=== PATIENT | male | born 1965 | race Caucasian/White ===

== ENCOUNTER 2018-04-07 08:00 | Outpatient (RCR) | payer OTHER, SELFPAY | END 2018-05-10 08:19 | disposition home or self-care (01) | LOC: PT 08:00 | PROVIDERS: Visit Provider Family Medicine | DX: S46.011A Strain of muscle(s) and tendon(s) of the rotator cuff of right shoulder, initial encounter (principal) | CPT/HCPCS: 97010; 97014; 97033; 97035; 97110; 97140; 97163; G0283 ==

== ENCOUNTER 2018-06-21 10:00 | Outpatient (RCR) | payer OTHER, SELFPAY | END 2018-06-27 10:47 | disposition home or self-care (01) | LOC: PT.CARL 10:00 | PROVIDERS: Visit Provider Orthopaedic Surgery Adult Reconstructive Orthopaedic Surgery | DX: M25.511 Pain in right shoulder (principal) | CPT/HCPCS: 97110; 97163 ==

== ENCOUNTER 2018-09-27 11:00 | Outpatient (RCR) | payer OTHER, SELFPAY | END 2018-09-27 15:34 | disposition home or self-care (01) | LOC: PT.CARL 11:00 | PROVIDERS: Visit Provider Orthopaedic Surgery Adult Reconstructive Orthopaedic Surgery | DX: M75.101 Unspecified rotator cuff tear or rupture of right shoulder, not specified as traumatic (principal) | CPT/HCPCS: 97010; 97014; 97110; 97140; 97163; 97164; G0283 ==

== ENCOUNTER → 2022-08-25 10:42 | Outpatient (CLI) | payer BC, SELFPAY ==
[2022-08-25 17:19] LABS: Alanine Aminotransferase 33 U/L (12-78); Albumin Level 4.2 g/dl (3.5-5.0); Albumin/Globulin Ratio 1.8 (1.1-1.8); Alkaline Phosphatase 105 U/L (38-126); Anion Gap 11.9 mEq/L (5-15); Aspartate Amino Transferase 32 U/L (17-59); Bilirubin,Total 1.7 mg/dl (0.2-1.3); Blood Urea Nitrogen 15 mg/dl (9-20); Calcium 8.6 mg/dl (8.4-10.2); Carbon Dioxide 27 mmol/L (22.0-30.0); Chloride 100 mmol/L (98-107); Chol/HDL Ratio 5.7 (1-3.5); Cholesterol 176 mg/dl (140-200); Estimated Glomerular Filt Rate 117 ml/min (>60); GFR (African American) 141 ML/MIN (>60); Globulin 2.3 g/dL (1.3-3.2); Glucose 267 mg/dl (74-100); HDL Cholesterol 31 mg/dl (40-60); Potassium 3.9 mmoL/L (3.5-5.1); Sodium 135 mmol/L (136-145); Total Protein,Serum 6.5 g/dl (6.3-8.2)
[2022-08-25 17:27] LABS: Basophils # 0.1 K/mm3 (0-0.2); Eosinophils # 0.3 K/mm3 (0.0-0.4); Eosinophils % 4.8 % (0.1-12.0); Hematocrit 47.9 % (42.0-52.0); Hemoglobin 15.9 g/dL (14.1-18.0); Lymphocytes % 18.4 % (10-50); Mean Corpuscular HGB Conc 33.2 g/dL (31.8-35.4); Mean Corpuscular Hemoglobin 27.9 pg (27.0-31.2); Mean Corpuscular Volume 83.9 fl (80-94); Mean Platelet Volume 9.2 fl (7.4-10.4); Monocytes # 0.3 K/mm3 (0.1-1.0); Neutrophils # 3.8 K/mm3 (1.8-7.8); Neutrophils % 69.9 % (37.0-80.0); Platelet Count 193 K/mm3 (142-424); Red Blood Count 5.71 M/mm3 (4.60-6.20); Red Cell Distribution Width 13.6 % (11.5-17.5); White Blood Count 5.4 K/mm3 (4.8-10.8)
[2022-08-25 17:30] LABS: Direct LDL Cholesterol 36.95 mg/dL (100-129)
[2022-08-25 17:49] LABS: Thyroid Stimulating Hormone 1.31 uIU/mL (0.465-4.68)
[2022-08-25 18:17] LABS: Triglycerides 508 mg/dl (30-150)
[2022-08-25 20:27] LABS: Microalbumin/Creatinine Ratio 50.1
[2022-08-25 20:29] LABS: Creatinine,Urine Random 120 mg/dL (Not Estab.)
== END ==
PROVIDERS: PCP Family Medicine; Visit Provider Family Medicine
DX: Z00.00 Encounter for general adult medical examination without abnormal findings (principal); I10 Essential (primary) hypertension; E11.9 Type 2 diabetes mellitus without complications; Z79.84 Long term (current) use of oral hypoglycemic drugs
CPT/HCPCS: 80053; 80061; 82043; 82570; 83036; 84443; 85025

== ENCOUNTER → 2022-12-15 17:28 | Outpatient (CLI) | payer BC, SELFPAY ==
[2022-12-15 20:04] LABS: Basophils # 0.1 K/mm3 (0-0.2); Basophils % 0.7 % (0.1-2.0); Eosinophils # 0.3 K/mm3 (0.0-0.4); Eosinophils % 3.9 % (0.1-12.0); Hematocrit 46.7 % (42.0-52.0); Hemoglobin 15.7 g/dL (14.1-18.0); Lymphocytes # 1.2 K/mm3 (0.7-4.5); Lymphocytes % 17.5 % (10-50); Mean Corpuscular HGB Conc 33.5 g/dL (31.8-35.4); Mean Corpuscular Hemoglobin 28.5 pg (27.0-31.2); Mean Platelet Volume 7.7 fl (7.4-10.4); Monocytes # 0.4 K/mm3 (0.1-1.0); Monocytes % 6.1 % (1.7-9.3); Neutrophils % 71.8 % (37.0-80.0); Platelet Count 165 K/mm3 (142-424); Red Cell Distribution Width 13.2 % (11.5-17.5)
[2022-12-15 20:33] LABS: Alanine Aminotransferase 35 U/L (12-78); Albumin Level 4.9 g/dl (3.5-5.0); Albumin/Globulin Ratio 2.3 (1.1-1.8); Alkaline Phosphatase 81 U/L (38-126); Aspartate Amino Transferase 30 U/L (17-59); Bilirubin,Total 1.5 mg/dl (0.2-1.3); Blood Urea Nitrogen 18 mg/dl (9-20); Calcium 9.1 mg/dl (8.4-10.2); Carbon Dioxide 28 mmol/L (22.0-30.0); Chloride 104 mmol/L (98-107); Chol/HDL Ratio 5.3 (1-3.5); Cholesterol 207 mg/dl (140-200); Estimated Glomerular Filt Rate 117 ml/min (>60); GFR (African American) 141 ML/MIN (>60); Globulin 2.1 g/dL (1.3-3.2); Glucose 92 mg/dl (74-100); HDL Cholesterol 39 mg/dl (40-60); Sodium 139 mmol/L (136-145); Triglycerides 342 mg/dl (30-150); VLDL Cholesterol 68 mg/dL (0-40)
[2022-12-15 20:42] LABS: Hemoglobin A1C 6.9 % (4.0-6.0)
[2022-12-15 20:44] LABS: Direct LDL Cholesterol 68.73 mg/dL (100-129)
== END ==
PROVIDERS: PCP Family Medicine; Visit Provider Family Medicine
DX: E11.9 Type 2 diabetes mellitus without complications (principal); E78.2 Mixed hyperlipidemia; I10 Essential (primary) hypertension
CPT/HCPCS: 80053; 80061; 83036; 85025

== ENCOUNTER → 2023-04-07 23:12 | Outpatient (CLI) | payer BC, SELFPAY ==
[2023-04-07 21:29] LABS: Hemoglobin A1C 6.7 % (4.0-6.0)
== END ==
PROVIDERS: PCP Family Medicine; Visit Provider Nurse Practitioner Family
DX: E11.9 Type 2 diabetes mellitus without complications (principal)
CPT/HCPCS: 83036

== ENCOUNTER 2023-09-12 11:24 | Outpatient (CLI) | payer BC, SELFPAY ==
[2023-09-12 16:40] LABS: Basophils # 0.1 K/mm3 (0-0.2); Basophils % 0.9 % (0.1-2.0); Eosinophils # 0.2 K/mm3 (0.0-0.4); Eosinophils % 3.3 % (0.1-12.0); Hematocrit 52.1 % (42.0-52.0); Hemoglobin 17.1 g/dL (14.1-18.0); Lymphocytes # 1.2 K/mm3 (0.7-4.5); Lymphocytes % 21.9 % (10-50); Mean Corpuscular HGB Conc 32.9 g/dL (31.8-35.4); Mean Corpuscular Hemoglobin 29.2 pg (27.0-31.2); Mean Corpuscular Volume 88.6 fl (80-94); Mean Platelet Volume 9.3 fl (7.4-10.4); Monocytes # 0.3 K/mm3 (0.1-1.0); Monocytes % 5.9 % (1.7-9.3); Neutrophils # 3.8 K/mm3 (1.8-7.8); Platelet Count 212 K/mm3 (142-424); Red Blood Count 5.88 M/mm3 (4.60-6.20); Red Cell Distribution Width 13.4 % (11.5-17.5); White Blood Count 5.6 K/mm3 (4.8-10.8)
[2023-09-12 17:02] LABS: Alanine Aminotransferase 29 U/L (12-78); Albumin Level 4.3 g/dl (3.5-5.0); Albumin/Globulin Ratio 1.9 (1.1-1.8); Alkaline Phosphatase 96 U/L (38-126); Anion Gap 9.9 mEq/L (5-15); Aspartate Amino Transferase 29 U/L (17-59); Bilirubin,Total 1.3 mg/dl (0.2-1.3); Blood Urea Nitrogen 17 mg/dl (9-20); Calcium 9.3 mg/dl (8.4-10.2); Carbon Dioxide 25 mmol/L (22.0-30.0); Chloride 111 mmol/L (98-107); Chol/HDL Ratio 4.7 (1-3.5); Cholesterol 175 mg/dl (140-200); Estimated Glomerular Filt Rate 100 ml/min (>60); GFR (African American) 121 ML/MIN (>60); Globulin 2.3 g/dL (1.3-3.2); Glucose 167 mg/dl (74-100); HDL Cholesterol 37 mg/dl (40-60); Potassium 3.9 mmoL/L (3.5-5.1); Sodium 142 mmol/L (136-145); Total Protein,Serum 6.6 g/dl (6.3-8.2); Triglycerides 312 mg/dl (30-150); VLDL Cholesterol 62 mg/dL (0-40)
[2023-09-12 17:13] LABS: Direct LDL Cholesterol 59.99 mg/dL (100-129)
[2023-09-12 17:27] LABS: Hemoglobin A1C 6.7 % (4.0-6.0)
[2023-09-12 17:37] LABS: Thyroid Stimulating Hormone 1.47 uIU/mL (0.465-4.68)
== END 2023-09-12 23:59 | disposition home or self-care (01) ==
LOC: LAB.DROPOF 09-13 11:24
PROVIDERS: PCP Family Medicine; Visit Provider Family Medicine
DX: I10 Essential (primary) hypertension (principal); E11.9 Type 2 diabetes mellitus without complications; R53.83 Other fatigue; Z79.84 Long term (current) use of oral hypoglycemic drugs
CPT/HCPCS: 80053; 80061; 83036; 84443; 85025

== ENCOUNTER 2024-09-10 09:50 | Outpatient (CLI) | payer BC, SELFPAY ==
[2024-09-10 17:57] LABS: Albumin Level 4.4 g/dl (3.5-5.0); Chloride 107 mmol/L (98-107); Sodium 141 mmol/L (136-145)
[2024-09-10 17:58] LABS: Potassium 4.1 mmoL/L (3.5-5.1)
[2024-09-10 18:00] LABS: Alanine Aminotransferase 32 U/L (12-78); Albumin/Globulin Ratio 1.6 (1.1-1.8); Alkaline Phosphatase 95 U/L (38-126); Anion Gap 16.1 mEq/L (5-15); Aspartate Amino Transferase 27 U/L (17-59); Bilirubin,Total 1.8 mg/dl (0.2-1.3); Blood Urea Nitrogen 16 mg/dl (9-20); Carbon Dioxide 22 mmol/L (22.0-30.0); Cholesterol 204 mg/dl (140-200); Estimated Glomerular Filt Rate 99 ml/min (>60); GFR (African American) 120 ML/MIN (>60); Globulin 2.7 g/dL (1.3-3.2); Total Protein,Serum 7.1 g/dl (6.3-8.2); Triglycerides 345 mg/dl (30-150); VLDL Cholesterol 69 mg/dL (0-40)
[2024-09-10 18:01] LABS: Calcium 9.5 mg/dl (8.4-10.2); Chol/HDL Ratio 4.9 (1-3.5); Glucose 175 mg/dl (74-100); HDL Cholesterol 42 mg/dl (40-60); Hemoglobin A1C 6.9 % (4.0-6.0)
[2024-09-10 18:12] LABS: Direct LDL Cholesterol 78.39 mg/dL (100-129)
[2024-09-10 18:51] LABS: HIV Combo NEGATIVE (Negative)
[2024-09-10 18:59] LABS: Hepatitis C Ab Qual. W/ RFX NEGATIVE (Negative)
== END 2024-09-10 23:59 | disposition home or self-care (01) ==
LOC: LAB.DROPOF 09-11 15:39
PROVIDERS: PCP Family Medicine; Visit Provider Family Medicine
DX: E78.2 Mixed hyperlipidemia (principal); Z11.59 Encounter for screening for other viral diseases; E11.9 Type 2 diabetes mellitus without complications; Z11.4 Encounter for screening for human immunodeficiency virus [HIV]
CPT/HCPCS: 80053; 80061; 83036; 86803; 87389